=== PATIENT | male | born 1965 | race Caucasian/White ===

== ENCOUNTER 2018-05-04 15:54 | Outpatient (RCR) | payer BC ==
[~2018-05-04 15:54] MED LIST: ALLP300T PO; CHOLESTEROL MED PO; CIPR500T78 PO; LEVOTHYROXINE PO; LISI10TA2 PO; LOVA10TA PO; MTF500T PO; PHEN200T27 PO
--- NOTE | 2018-05-04 19:33 | Diagnostic Imaging Report ---
INDICATION: History of nephrolithiasis. Two views were obtained. FINDINGS: Bowel gas pattern is nonspecific. There is a punctate stone projecting over the superior aspect of the left kidney. No other abnormal calcifications are appreciated. IMPRESSION: Punctate stone projecting over the superior aspect of the left kidney likely a nonobstructing stone. This measures approximately 4 mm. Otherwise nonspecific bowel gas pattern. Dictated by: Dictated on workstation # [id number]
== END 2018-08-02 | disposition home or self-care (01) ==
LOC: RAD 15:54 → EDSTATUS 05-14 14:16
PROVIDERS: ATTEND Urology
DX: N20.0 Calculus of kidney (principal)
CPT/HCPCS: 74018; 82140; 82340; 82507; 82570; 83735; 83945; 83986; 84105; 84133; 84300; 84392; 84560

== ENCOUNTER 2019-03-22 05:40 | Outpatient (CLI) | payer BC ==
[~2019-03-22] VITALS: Ht 182.9 cm; Wt 103.0 kg
[2019-03-23] MEDS ORDERED: ALLO300T2 PO (15:01)
[2019-03-23] MEDS ORDERED: HYDR25TA4 PO (15:01)
[2019-03-23] MEDS ORDERED: ASPI-586 PO (15:01)
[2019-03-23] MEDS ORDERED: GLIM2TAB PO (15:01)
[2019-03-23] MEDS ORDERED: LOVA10TA PO (15:01)
[2019-03-23] MEDS ORDERED: POTA15TA PO (15:01)
[2019-03-23] MEDS ORDERED: LISI2.5T PO (15:01)
[2019-03-23] MEDS ORDERED: METF-399 PO (15:01)
[2019-03-23] MEDS ORDERED: CHOL20003 PO (15:01)
[2019-03-23] MEDS ORDERED: LEVO112T2 PO (15:01)
== END 2019-03-22 16:00 | disposition home or self-care (01) ==
LOC: PREOP 05:40
PROVIDERS: ATTEND Surgery
DX: Z01.818 Encounter for other preprocedural examination (principal)

== ENCOUNTER 2019-03-29 06:54 | Day surgery (SDC) | payer BC ==
[~2019-03-29] VITALS: Ht 182.9 cm; Wt 103.0 kg
[~2019-03-29 06:54] MED LIST changes: +ALLO300T2 PO; +ASPI-586 PO; +CHOL20003 PO; +GLIM2TAB PO; +HYDR25TA4 PO; +LEVO112T2 PO; +LISI2.5T PO; +METF-399 PO; +POTA15TA PO
--- OUTSIDE RECORDS SUMMARY | 2019-03-29 06:57 | XMS REPORT | Continuity of Care Document ---
Author Organization Unknown Address Unknown Allergies Active Description Code Type Severity Reaction Onset Reported/Identified Relationship to Patient Clinical Status Yes No Known Drug Allergies [id number] Drug Allergy Unknown N/A 03/22/2019 Medications There is no data. Problems Date Dx Coded Attending Type Code Diagnosis Diagnosed By EMMANUELLE DE LA TORRE, BRAULIO Hebert Ot N20.9 URINARY CALCULUS, UNSPECIFIED 05/31/2014 EMMANUELLE DE LA TORRE, BRAULIO Hebert Ot 592.0 CALCULUS OF KIDNEY 05/31/2014 EMMANUELLE DE LA TORRE, BRAULIO Hebert Ot 592.1 CALCULUS OF URETER 05/31/2014 EMMANUELLE DE LA TORRE, BRAULIO Hebert Ot 598.9 URETHRAL STRICTURE NOS 09/12/2014 EMMANUELLE DE LA TORRE, BRAULIO Hebert Ot 592.0 CALCULUS OF KIDNEY 10/20/2015 EMMANUELLE DE LA TORRE, BRAULIO A Ot 592.0 10/20/2015 EMMANUELLE DE LA TORRE, BRAULIO Hebert Ot 592.0 10/20/2015 EMMANUELLE DE LA TORRE, BRAULIO Hebert Ot 592.1 10/20/2015 EMMANUELLE DE LA TORRE, BRAULIO Hebert Ot V72.84 10/20/2015 EMMANUELLE DE LA TORRE, BRAULIO Hebert Ot V74.8 10/20/2015 Ot 592.0 11/08/2015 EMMANUELLE DE LA TORRE, BRAULIO Hebert Ot N20.9 02/26/2016 EMMANUELLE DE LA TORRE, BRAULIO A Ot N20.9 02/26/2016 EMMANUELLE DE LA TORRE, BRAULIO Hebert Ot N20.9 09/24/2016 BRAULIO HANDLEY MD Ot 592.0 CALCULUS OF KIDNEY 09/24/2016 EMMANUELLE DE LA TORRE, BRAULIO A Ot 592.0 CALCULUS OF KIDNEY 09/24/2016 EMMANUELLE DE LA TORRE, BRAULIO Hebert Ot 592.1 CALCULUS OF URETER 09/24/2016 BRAULIO HANDLEY MD Ot V72.84 EXAM PRE-OPERATIVE NOS 09/24/2016 EMMANUELLE DE LA TORRE, BRAULIO Hebert Ot V74.8 SCREEN-BACTERIAL DIS NEC 09/24/2016 Ot 592.0 CALCULUS OF KIDNEY 09/24/2016 EMMANUELLE DE LA TORRE, BRAULIO Hebert Ot N20.9 URINARY CALCULUS, UNSPECIFIED 09/24/2016 EMMANUELLE DE LA TORRE, BRAULIO Hebert Ot N20.9 URINARY CALCULUS, UNSPECIFIED 10/28/2016 EMMANUELLE DE LA TORRE, BRAULIO Hebert Ot N20.9 URINARY CALCULUS, UNSPECIFIED 05/04/2018 EMMANUELLE DE LA TORRE, BRAULIO Hebert Ot 592.0 CALCULUS OF KIDNEY 05/04/2018 EMMANUELLE DE LA TORRE, BRAULIO Hebert Ot 592.0 CALCULUS OF KIDNEY 05/04/2018 EMMANUELLE DE LA TORRE, BRAULIO Hebert Ot 592.1 CALCULUS OF URETER 05/04/2018 EMMANUELLE DE LA TORRE, BRAULIO Hebert Ot V72.84 EXAM PRE-OPERATIVE NOS 05/04/2018 EMMANUELLE DE LA TORRE, BRAULIO Hebert Ot V74.8 SCREEN-BACTERIAL DIS NEC 05/04/2018 Ot 592.0 CALCULUS OF KIDNEY 05/04/2018 EMMANUELLE DE LA TORRE, BRAULIO Hebert Ot N20.9 URINARY CALCULUS, UNSPECIFIED 05/05/2018 EMMANUELLE DE LA TORRE, BRAULIO Hebert Ot N20.0 CALCULUS OF KIDNEY 05/10/2018 EMMANUELLE DE LA TORRE, BRAULIO Hebert Ot N20.0 CALCULUS OF KIDNEY 05/14/2018 EMMANUELLE DE LA TORRE, BRAULIO Hebert Ot N20.0 CALCULUS OF KIDNEY 05/20/2018 EMMANUELLE DE LA TORRE, BRAULIO Hebert Ot N20.0 CALCULUS OF KIDNEY 06/21/2018 EMMANUELLE DE LA TORRE, BRAULIO Hebert Ot N20.0 CALCULUS OF KIDNEY 08/02/2018 EMMANUELLE DE LA TORRE, BRAULIO Hebert Ot N20.0 CALCULUS OF KIDNEY 08/05/2018 EMMANUELLE DE LA TORRE, BRAULIO Hebert Ot N20.0 CALCULUS OF KIDNEY 03/22/2019 Ot 592.0 CALCULUS OF KIDNEY 03/22/2019 EMMANUELLE DE LA TORRE, BRAULIO Hebert Ot N20.0 CALCULUS OF KIDNEY 03/23/2019 ALEXSANDRA PINTO DO Ot Z01.818 ENCOUNTER FOR OTHER PREPROCEDURAL EXAMIN Procedures There is no data. Results Test Result Range CD3+CD4+ (T4 helper) cells/100 cells in blood - 10/28/16 06:50 Timed urine calcium measurement (mass/volume) 309 % < 250 Urine oxalate detection 48 < 45 Urine uric acid measurement (mass/volume) 335 % < 700 Urine citrate measurement (mass/volume) 1365 % > 320 Urine pH measurement 5.9 5.5-7.0 24 hour urine specimen volume measurement 2.56 % > 2.00 Sodium urate/total calculus mass ratio by infrared spectroscopy 234 % < 200 Sulfites [presence] in urine by test strip 16 < 30 Urine phosphate measurement (mass/volume) 1085 % < 1100 Urine magnesium measurement (mass/volume) 57 % > 60 Urine calcium oxalate measurement 1.75 < 2.00 Urine calcium phosphate crystals detection by computer assisted method 0.76 < 2.00 24 hour urine sodium urate (saturation fraction) 0.82 < 2.00 Triple phosphate crystals detection in urine sediment by light microscopy 0.03 < 75.00 24 hour urine uric acid (saturation fraction) 0.65 < 2.00 Urine ammonium measurement 20 % 14-62 Urine potassium measurement 53 % 19-135 24 hour urine creatinine measurement (mass/time) 1660 % -1999 Clinical [facility] review of results See Below NRG CD3+CD4+ (T4 helper) cells/100 cells in blood - 05/06/18 05:30 Timed urine calcium measurement (mass/volume) 444 % < 250 Urine oxalate detection 44 < 45 Urine uric acid measurement (mass/volume) 736 % < 700 Urine citrate measurement (mass/volume) 1155 % > 320 Urine pH measurement 6.2 5.5-7.0 24 hour urine specimen volume measurement 2.35 % > 2.00 Sodium urate/total calculus mass ratio by infrared spectroscopy 287 % < 200 Sulfites [presence] in urine by test strip 15 < 30 Urine phosphate measurement (mass/volume) 1375 % < 1100 Urine magnesium measurement (mass/volume) 139 % > 60 Urine calcium oxalate measurement 2.18 < 2.00 Urine calcium phosphate crystals detection by computer assisted method 2.91 < 2.00 24 hour urine sodium urate (saturation fraction) 2.82 < 2.00 Triple phosphate crystals detection in urine sediment by light microscopy 0.72 < 75.00 24 hour urine uric acid (saturation fraction) 0.87 < 2.00 Urine ammonium measurement 32 % 14-62 Urine potassium measurement 85 % 19-135 24 hour urine creatinine measurement (mass/time) 2584 % -1999 Clinical [place] [facility] review of results See Below NRG Encounters ACCT No. Visit Date/Time Discharge Status Pt. Type Provider Facility Loc./Unit Complaint [id number] 03/22/2019 05:40:00 03/22/2019 16:00:00 DIS Outpatient ALEXSANDRA PINTO DO [facility] [address] PREOP COLONOSCOPY [id number] 08/03/2018 00:11:00 08/03/2018 23:59:59 CLS Preadmit BRAULIO HANDLEY MD [facility] [address] RAD HISTORY OF STONE [id number] 05/04/2018 15:54:00 08/02/2018 00:01:00 DIS Outpatient BRAULIO HANDLEY MD [facility] [address] RAD HISTORY OF STONE [id number] 10/28/2016 08:33:00 10/28/2016 09:36:00 DIS Outpatient BRAULIO HANDLEY MD [facility] [address] LAB STONES [id number] 10/20/2015 10:22:00 10/20/2015 23:59:59 CLS Outpatient BRAULIO HANDLEY MD [facility] [address] RAD STONES [id number] 06/19/2014 08:33:00 09/12/2014 00:01:00 DIS Outpatient BRAULIO HANDLEY MD [facility] [address] LAB STONES [id number] 05/31/2014 07:00:00 05/31/2014 10:40:00 DIS Outpatient BRAULIO HANDLEY MD [facility] [address] SDC LEFT URETERAL STONE BILATERAL RENAL STONES [id number] 05/30/2014 09:01:00 05/30/2014 23:59:59 CLS Outpatient BRAULIO HANDLEY MD [facility] [address] PREOP LEFT URETERAL STONE BILATERAL RENAL STONES [id number] 05/25/2014 13:00:00 05/25/2014 23:59:59 CLS Outpatient BRAULIO HANDLEY MD [facility] [address] RAD STONES [id number] 03/29/2019 08:00:00 PEN Preadmit ALEXSANDRA PINTO DO [facility] [address] ENDO SCREENING [id number] 09/13/2014 00:00:00 Document Registration
[2019-03-29] MEDS ORDERED: LACTATED RINGERS 1,000 ML IV ONE (07:08)
[2019-03-29] MEDS ORDERED: PROPOFOL INJECTION 50 ML IV ONE ×2 (07:26→08:53)
[2019-03-29] MEDS ORDERED: MIDAZOLAM 2 MG/2 ML (VERSED) VIAL ONE (07:26)
[2019-03-29] MEDS ORDERED: LACTATED RINGERS 1,000 ML IV STA ×2 (07:49)
[2019-03-29 07:56] VITALS: BP 122/90
--- NOTE | 2019-03-29 08:31 | Progress Note-Pre Operative ---
Pre-Operative Progress Note H&P Reviewed The H&P was reviewed, patient examined and no changes noted. Time Seen by Provider: 08:22 Date H&P Reviewed: Mar 29, 2019 Time H&P Reviewed: 08:23 Pre-Operative Diagnosis: screening colonoscopy ALEXSANDRA PINTO DO Mar 29, 2019 08:31
[2019-03-29 08:52] VITALS: BP 144/77
[2019-03-29 09:03] VITALS: BP 122/90
--- NOTE | 2019-03-29 09:03 | Progress Note-Post Operative ---
Post-Operative Progess Note Surgeon (s)/Medical Psychotherapist (s) Surgeon ALEXSANDRA PINTO DO Medical Psychotherapist: none Pre-Operative Diagnosis screening colonoscopy Post-Operative Diagnosis colon polyps diverticula internal hemorrhoids Procedure & Operative Findings Date of Procedure 03/29/19 Procedure Performed/Findings colon with snare Anesthesia Type iv sedation by FILLER PICKER Estimated Blood Loss Estimated blood loss (mL): scant Specimens/Packing Specimens Removed Sigmoid polyp rectal polyp ALEXSANDRA PINTO DO Mar 29, 2019 09:03
--- NOTE | 2019-03-29 09:04 | Endoscopy Discharge Instruct ---
Endo Procedure/Findings Findings 1.: Polyp 2.: Diverticulosis 3.: Internal Hemorrhoids Discharge Instructions - Activity: You might feel a little sleepy until tomorrow. This is due to the medicine you received to relax you. Until tomorrow, you should: NOT drive a car, operate machinery or power tools. NOT drink any alcoholic beverages. NOT make any important decisions or sign importortant papers. Do not return to work until tomorrow, unless otherwise instructed. Resume previous activities tomorrow. Diet: Start by taking liquids. If you tolerate liquids, advance to solid food. make an appointment for one week Instructions: 1.: Colonscopy in 5 years Notify Physician - If you experience excessive bleeding, unusual abdominal pain, fever, or chest pain, contact your doctor immediately. Follow-Up: - I have received and understand the above instructions and will call my doctor if I have any further questions. Patient Signature Date Nurse Signature Other (Relationship) ALEXSANDRA PINTO DO Mar 29, 2019 09:04
[2019-03-29 09:20] VITALS: BP 118/71
[2019-03-29 09:38] VITALS: BP 108/82
[2019-03-29 09:40] VITALS: BP 108/82
--- NOTE | 2019-03-29 13:22 | Anesthesia-General Post-Op ---
MAC Patient Condition Mental Status/LOC: Same as Preop Cardiovascular: Satisfactory Nausea/Vomiting: Absent Respiratory: Satisfactory Pain: Controlled Complications: Absent Post Op Complications Complications None Follow Up Care/Instructions Patient Instructions None needed. Anesthesiology Discharge Order Discharge Order Patient is doing well, no complaints, stable vital signs, no apparent adverse anesthesia problems. No complications reported per nursing. DIANA HRENANDEZ CRNA Mar 29, 2019 13:22
--- NOTE | 2019-03-29 19:45 | OPERATIVE REPORT ---
DATE OF SERVICE: PREOPERATIVE DIAGNOSIS: Screening colonoscopy. POSTOPERATIVE DIAGNOSES: 1. Colon polyps. 2. Diverticula. 3. Internal hemorrhoids. PROCEDURE: Colonoscopy with snare polypectomy. SURGEON: Paco Marcos DO RUBBER STAMP MAKER: None. ANESTHESIA: IV sedation by SULFURIC ACID PLANT OPERATOR. SPECIMEN: One polyp from the sigmoid colon, one polyp from the rectum. BLOOD LOSS: Scant. FLUIDS: Per anesthesia. POSTOPERATIVE CONDITION: Stable. INDICATION FOR PROCEDURE: The patient is a 53-year-old male who has not had a colonoscopy and needs one for screening. FINDINGS: The patient had 1 polyp in the sigmoid, 1 polyp in the rectum. He also had some diverticula and some minimal internal hemorrhoids. PROCEDURE NOTE: After informed consent was obtained, the patient was brought to the endoscopy suite, placed in the bed lateral decubitus position. He was administered IV sedation by the SULFURIC ACID PLANT OPERATOR who then monitored his vitals the entire time, heart rate, blood pressure, pulse ox. Then, the scope was inserted on the way and noted a polyp in the sigmoid colon, did a snare polypectomy of this, and continued all the way up to the cecum, noted some diverticula on the way in. Once in the cecum, took a picture of appendiceal orifice, noted the ileocecal valve and then slowly withdrew the scope insufflating to look circumferentially at the mora looking at the cecum up the ascending colon to the hepatic flexure, then down the transverse colon, the splenic flexure, into the descending colon, into the sigmoid colon, again saw some diverticula, took picture of this and then pulled back down into the rectum, retroflexed in the rectal vault, saw some minimal internal hemorrhoids, also saw another polyp and did a snare polypectomy of this as well and then removed the scope. The patient tolerated the procedure. He was recovered in endoscopy suite. Job ID: [id number] DocumentID: [id number] Dictated Date: 03/29/2019 11:37:30 Uniform Cap Operator Date: 03/29/2019 19:44:15 Dictated By: PACO MARCOS DO
== END 2019-03-29 09:43 | disposition home or self-care (01) ==
LOC: ENDO 06:54
PROVIDERS: ATTEND Surgery
DX: Z12.11 Encounter for screening for malignant neoplasm of colon (principal); K63.5 Polyp of colon; K62.1 Rectal polyp; K57.30 Diverticulosis of large intestine without perforation or abscess without bleeding; K64.8 Other hemorrhoids; E11.9 Type 2 diabetes mellitus without complications; E07.9 Disorder of thyroid, unspecified; Z79.899 Other long term (current) drug therapy; Z79.84 Long term (current) use of oral hypoglycemic drugs; Z79.82 Long term (current) use of aspirin; Z80.41 Family history of malignant neoplasm of ovary
CPT/HCPCS: 88305

== ENCOUNTER 2019-06-08 16:14 | Outpatient (RCR) | payer BC ==
--- NOTE | 2019-06-08 17:37 | Diagnostic Imaging Report ---
EXAMINATION: Abdomen, one view. HISTORY: Kidney stones. FINDINGS: Comparison is 05/04/2018. A 2 mm focus projects over the upper pole of the left kidney and is unchanged. This is likely a small renal stone. No other calculi are seen. No osseous lesions. Bowel gas pattern is normal. IMPRESSION: 1. Stable 2 mm calcification projecting over the upper pole of the left kidney, likely a small stone. Dictated by: Dictated on workstation # [id number]
== END 2019-09-06 | disposition home or self-care (01) ==
LOC: LAB 16:14
PROVIDERS: ATTEND Urology
DX: N20.2 Calculus of kidney with calculus of ureter (principal)
CPT/HCPCS: 74018

== ENCOUNTER 2019-10-06 05:30 | Outpatient (RCR) | payer BC ==
[~2019-10-06 05:30] MED LIST changes: -GLIM2TAB PO; +GLIM2TAB2 PO
== END 2020-01-04 | disposition home or self-care (01) ==
LOC: LAB 05:30
PROVIDERS: ATTEND Urology
DX: N20.9 Urinary calculus, unspecified (principal)
CPT/HCPCS: 82140; 82340; 82507; 82570; 83735; 83945; 83986; 84105; 84133; 84300; 84392; 84560

== ENCOUNTER 2020-11-16 06:00 | Outpatient (RCR) | payer BC ==
--- NOTE | 2020-11-08 11:59 | Diagnostic Imaging Report ---
History of collecting system calculi. COMPARISON: 06/08/2019 FINDINGS: Single frontal supine radiograph view the abdomen was obtained. Punctate extraosseous calcifications are noted projecting in the superior poles of both kidneys. Pelvic phleboliths of the pelvis are also identified bilaterally. No unexpected radiopaque foreign bodies are seen. Small bowel loops are nondistended. There is no large collection of free intraperitoneal air. Osseous structures show no acute abnormalities. IMPRESSION: 1. Bilateral nephrolithiasis. 2. Nonobstructed small bowel gas pattern. Dictated by: Dictated on workstation # [id number]
[~2020-11-16 06:00] MED LIST changes: -GLIM2TAB2 PO; +GLIM2TAB4 PO
== END 2021-02-06 | disposition home or self-care (01) ==
LOC: RAD 06:00
PROVIDERS: ATTEND Urology
DX: N20.0 Calculus of kidney (principal)
CPT/HCPCS: 36415; 74018; 82140; 82340; 82507; 82570; 83735; 83945; 83986; 84105; 84133; 84300; 84392; 84560

== ENCOUNTER → 2022-08-21 | Outpatient (CLI) | payer BC ==
[~2022-08-21] MED LIST changes: -LISI2.5T PO; +LISI2.5T13 PO
--- NOTE | 2022-08-21 10:37 | Diagnostic Imaging Report ---
INDICATION: Nephrolithiasis. EXAMINATION: KUB at 10:28 AM. FINDINGS: There is a small opacity projecting over the upper lateral portion of the left kidney. This measures 2 mm in diameter. This was present on a prior study from 11/08/2020. The bowel gas pattern is normal. IMPRESSION: Left nephrolithiasis. Dictated by: Dictated on workstation # [id number]
== END ==
LOC: RAD FS 10:12
PROVIDERS: ATTEND Urology
DX: N20.0 Calculus of kidney (principal)
CPT/HCPCS: 74018

== ENCOUNTER → 2023-07-11 | Outpatient (CLI) | payer BC ==
--- NOTE | 2023-07-11 15:47 | Diagnostic Imaging Report ---
Indication: Nephrolithiasis. Compared: 08/21/2022 Findings: A faint calculus projects over the mid to upper 3rd of the left kidney measuring 2 to 3 mm unchanged. Pelvic phleboliths on the right are stable and chronic. Bowel gas pattern normal. Impression: Left kidney stone radiographically unchanged, no acute-appearing abnormality. Dictated by: Dictated on workstation # [id number]
== END ==
LOC: RAD FS 12:08
PROVIDERS: ATTEND Urology
DX: N20.0 Calculus of kidney (principal)
CPT/HCPCS: 74018